=== PATIENT | male | born 1990 | race Caucasian/White ===

== ENCOUNTER → 2023-10-01 06:31 | Day surgery (SDC) | payer BC, SELFPAY | LOC: GI 06:31 | PROVIDERS: ATTENDING PHYSICIAN Internal Medicine Gastroenterology | DX: K51.20 Ulcerative (chronic) proctitis without complications (principal); K64.8 Other hemorrhoids; D49.0 Neoplasm of unspecified behavior of digestive system; K51.40 Inflammatory polyps of colon without complications; K62.89 Other specified diseases of anus and rectum | CPT/HCPCS: 45331; 88305 ==

== ENCOUNTER → 2024-04-08 11:57 | Outpatient (REF) | payer BC, SELFPAY | LOC: HWRAD 11:57 | PROVIDERS: ATTENDING PHYSICIAN Nurse Practitioner Family; FAMILY PHYSICIAN Family Medicine | DX: K51.20 Ulcerative (chronic) proctitis without complications (principal); R10.30 Lower abdominal pain, unspecified | CPT/HCPCS: 74177; Q9967 ==

== ENCOUNTER → 2024-04-14 06:23 | Day surgery (SDC) | payer BC, SELFPAY | LOC: GI 06:23 | PROVIDERS: ATTENDING PHYSICIAN Internal Medicine Gastroenterology | DX: R10.84 Generalized abdominal pain (principal); R93.3 Abnormal findings on diagnostic imaging of other parts of digestive tract; K62.5 Hemorrhage of anus and rectum; K64.8 Other hemorrhoids; D49.0 Neoplasm of unspecified behavior of digestive system; K62.89 Other specified diseases of anus and rectum | CPT/HCPCS: 45380; 88305 ==